=== PATIENT | male | born 2005 | race Caucasian/White ===

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

== ENCOUNTER 2023-06-05 10:35 | Emergency (ER) | payer OTHER ==
[2023-06-05] MEDS ORDERED: methylPREDNISolone Sodium Succinate 125 MG/2 ML SDV IVPUSH ONE (11:00)
[2023-06-05] MEDS ORDERED: Albuterol 0.083% 2.5 MG/3 ML Neb Soln NEB ONE (11:00)
[2023-06-05] MEDS ORDERED: cefTRIAXone 1 GM Vial IVPUSH ONE (11:01)
[2023-06-05 11:38] LABS: CORONAVIRUS COVID-19 NAA NEGATIVE (NEGATIVE); INFLUENZA A NAA NEGATIVE (NEGATIVE); INFLUENZA B NAA NEGATIVE (NEGATIVE); RESPIRATORY SYNCYTIAL VIR NAA NEGATIVE (NEGATIVE)
== END 2023-06-05 11:50 | disposition home or self-care (01) ==
LOC: VM.ED 10:35
DX: J21.9 Acute bronchiolitis, unspecified (principal); J45.901 Unspecified asthma with (acute) exacerbation; Z88.0 Allergy status to penicillin; Z20.822 Contact with and (suspected) exposure to COVID-19
CPT/HCPCS: 0241U; 94640; 96374; 96375; 99283; 99285; J0696; J2930; J7613-GY